=== PATIENT | male | born 1970 | race Caucasian/White ===

== ENCOUNTER 2019-06-25 08:47 | Emergency (ER) | payer SELFPAY ==
[2019-06-25] MEDS ORDERED: LIDOCAINE 1% PF 30 ML VIAL. INJ ONE (09:15)
--- NOTE | 2019-06-25 09:15 | PHYS DOC ---
Adult General [facility] HPI Patient is a 48-year-old male presented to ER today for evaluation of a skin infection on his right forearm that been going on for about 3 days. Patient denies any history of diabetes, no history hypertension. Patient IS not up-to-date on his tetanus vaccination status. Patient denies any fever. he denies any history of MRSA. Review of Systems Review of Systems Constitutional: Denies fever or chills [] Eyes: Denies change in visual acuity, redness, or eye pain [] HENT: Denies nasal congestion or sore throat [] Respiratory: Denies cough or shortness of breath [] Cardiovascular: No additional information not addressed in HPI [] GI: Denies abdominal pain, nausea, vomiting, bloody stools or diarrhea [] : Denies dysuria or hematuria [] Musculoskeletal: Denies back pain or joint pain [] Integument: Denies rash or skin lesions [] Neurologic: Denies headache, focal weakness or sensory changes [] Endocrine: Denies polyuria or polydipsia [] All other systems were reviewed and found to be within normal limits, except as documented in this note. Physical Exam Physical Exam Constitutional: Well developed, well nourished, no acute distress, non-toxic appearance. [] HENT: Normocephalic, atraumatic, bilateral external ears normal, oropharynx mo ist, no oral exudates, nose normal. [] Eyes: PERRLA, EOMI, conjunctiva normal, no discharge. [] Neck: Normal range of motion, no tenderness, supple, no stridor. [] Cardiovascular:Heart rate regular rhythm, no murmur [] Lungs & Thorax: Bilateral breath sounds clear to auscultation [] Abdomen: Bowel sounds normal, soft, no tenderness, no masses, no pulsatile masses. [] Skin: 3 CM BY 3 CM INDURATED, ERYTHEMA, TENDER MASS ON THE FLEXOR SURFACE OF RIGHT FOREARM. Back: No tenderness, no CVA tenderness. [] Extremities: No tenderness, no cyanosis, no clubbing, ROM intact, no edema. [] Neurologic: Alert and oriented X 3, normal motor function, normal sensory function, no focal deficits noted. [] Psychologic: Affect normal, judgement normal, mood normal. [] EKG EKG [] Radiology/Procedures Radiology/Procedures Indication: [INDICATION:] right forearm abscess Procedure: The patient was positioned appropriately and the skin over the incision site was [PREP FOR PROCEDURE:]. Local anesthesia was used, 8 ml of 1% plain lidocaine]. An incision was then made over the abscess area, using scaple # 11, and small purulent material was expressed. Loculations were probed with lore lemon picker. . The drainage cavity was then irrigated]. Patient was given tetanus booster. The patient tolerated the procedure weel. Complications: none Course & Med Decision Making Course & Med Decision Making Pertinent Labs and Imaging studies reviewed. (See chart for details) [] Dragon Disclaimer Dragon Disclaimer This electronic medical record was generated, in whole or in part, using a voice recognition dictation system. Departure Departure: Impression: Primary Impression: Skin abscess Disposition: HOME, SELF-CARE Condition: STABLE Referrals: PCPBERRY (PCP) FOLLOW UP WITH YOUR DOCTOR ON FRIDAY FOR REEVALUATION. Patient Instructions: Abscess Additional Instructions: Thank you for visiting our Emergency Department. We appreciate you trusting us with your care. If any additional problems come up don't hesitate to return to visit us. Please follow up with your primary care provider so they can plan additional care if needed and know about the problem that you had. If symptoms worsen come back to the Emergency Department. Any concerning symptoms that start such as chest pain, shortness of air, weakness or numbness on one side of the body, running high fevers or any other concerning symptoms return to the ER. Scripts Sulfamethoxazole/Trimethoprim (BACTRIM DS TABLET) 1 Each Tablet 1 TAB PO BID for ABSCESS for 10 Days, #20 TAB 0 Refills Prov: AI JOE DO 06/25/19 AI JOE DO Jun 25, 2019 09:15
[2019-06-25] MEDS ORDERED: SULF1TAB24 PO (09:19)
[2019-06-25] MEDS ORDERED: DIPHTH,PERTUSS(ACELL),TET TOX 0.5 ML DISP.SYRIN. VAX IM ONE (09:45)
[2019-06-25 10:24] VITALS: BP 134/87
== END 2019-06-25 09:43 | disposition home or self-care (01) ==
LOC: ER 08:47
DX: L02.413 Cutaneous abscess of right upper limb (principal)
CPT/HCPCS: 10060; 90471; 90715; 99283; J2001

== ENCOUNTER 2019-07-07 11:28 | Emergency (ER) | payer SELFPAY ==
[~2019-07-07] VITALS: Ht 182.9 cm; Wt 72.7 kg
[~2019-07-07 11:28] MED LIST: SULF1TAB24 PO
[2019-07-07 11:40] VITALS: BP 105/79
[2019-07-07] MEDS ORDERED: DOXY100C2 PO (11:58)
--- NOTE | 2019-07-07 11:58 | PHYS DOC ---
Past History Past Medical History: Hepatitis, Other Additional Past Medical Histor: Herpes Past Surgical History: No Surgical History Alcohol Use: Rarely Drug Use: Methamphetamine Adult General Chief Complaint Chief Complaint: SKIN PROBLEM HPI HPI Patient is a 48-year-old male who came back to ER today for reevaluation of the wound on his right forearm that he was seen here on the of this month. Patient was seen here then for a tender, swollen mass on right forearm that he has have for since 06/23/18. The area was I & D, not much pus drained. Patient was put on bactrim DS for 10 days. He felt like he is getting better , the mass is getting smaller, the redness improved but it is wet machine tender and red so he came back here for evaluation. Patient denied any fever, no drainage from the wound. he denies any chest pain, no cough, no fever. he denies any weight loss, no trouble breathing. All other ROS is negative unless otherwise noted in HPI Review of Systems Review of Systems See above Allergies Allergies Allergies Coded Allergies Type Severity Reaction Last Updated Verified No Known Drug Allergies 06/25/19 No Physical Exam Physical Exam See above Constitutional: Well developed, well nourished, no acute distress, non-toxic appearance. [] HENT: Normocephalic, atraumatic, bilateral external ears normal, oropharynx moist, no oral exudates, nose normal. [] Eyes: PERRLA, EOMI, conjunctiva normal, no discharge. [] Neck: Normal range of motion, no tenderness, supple, no stridor. [] Cardiovascular:Heart rate regular rhythm, no murmur [] Lungs & Thorax: Bilateral breath sounds clear to auscultation [] Abdomen: Bowel sounds normal, soft, no tenderness, no masses, no pulsatile masses. [] Skin: Warm, dry, no erythema, no rash. [] Back: No tenderness, no CVA tenderness. [] Extremities: 2.5 cm by 2.5 cm nontender mass on the flexor surface of right fo rearm. No drainage. Mild erythema. Neurologic: Alert and oriented X 3, normal motor function, normal sensory function, no focal deficits noted. [] Psychologic: Affect normal, judgement normal, mood normal. [] Current Patient Data Vital Signs Vital Signs Date Time Temp Pulse Resp B/P (MAP) Pulse Ox O2 Delivery O2 Flow Rate FiO2 07/07/19 11:40 97.8 110 16 105/79 (88) 100 Room Air EKG EKG [] Radiology/Procedures Radiology/Procedures [] Course & Med Decision Making Course & Med Decision Making Pertinent Labs and Imaging studies reviewed. (See chart for details) Patient is a 48-year-old male who was evaluated in the ER today for a tender mass on the right forearm. The mass is getting smaller and less painful , however he will need to follow with his family doctor for referral to a plastic surgeon or general surgeon for reevaluation, he might need a biopsy of the lesion for further evaluation. Patient is amenable to plan of care. Dragon Disclaimer Dragon Disclaimer This electronic medical record was generated, in whole or in part, using a voice recognition dictation system. Departure Departure: Impression: Primary Impression: Cellulitis of skin Disposition: 01 HOME, SELF-CARE Condition: STABLE Referrals: PCP,NO (PCP) please follow up with your family doctor for reevaluation in 2 days, and for a referral to a general surgeon or plastic surgeon for furher evaluation next week. Patient Instructions: Cellulitis Scripts Doxycycline Hyclate (DOXYCYCLINE HYCLATE) 100 Mg Capsule 1 CAP PO BID for cellulitis for 10 Days, #20 CAP Prov: AI JOE DO 07/07/19 AI JOE DO Jul 07, 2019 11:58
== END 2019-07-07 12:06 | disposition home or self-care (01) ==
LOC: ER 11:35
DX: L02.413 Cutaneous abscess of right upper limb (principal); L53.9 Erythematous condition, unspecified; F14.90 Cocaine use, unspecified, uncomplicated
CPT/HCPCS: 99283